=== PATIENT | female | born 1970 | race Hispanic/Latino ===

== ENCOUNTER 2018-03-29 21:18 | Emergency (ER) | payer OTHER ==
[2018-03-29 21:25] VITALS: BP 155/97; PULSE 100; RESP 20; TEMP 98.7; O2SAT 95
[2018-03-29] MEDS ORDERED: Lidocaine 5% Patch TD STA (21:41)
[2018-03-29] MEDS ORDERED: Lidocaine 5% Patch TD ONE (21:57)
--- NOTE | 2018-03-29 22:26 | C.PDOC ---
History Of Present Illness 47 year old female with a Hx of herniated discs and chronic back problems presents to the ER with a complaint of lower back pain radiating down the left leg for the past 3 days. Patient states the pain began after she bent over to pick something up. Denies weakness, numbness, or incontinence. Time Seen by Provider: 03/29/18 21:37 Chief Complaint (Nursing): Back Pain History Per: Patient History/Exam Limitations: no limitations Onset/Duration Of Symptoms: Days Current Symptoms Are (Timing): Still Present Quality Of Discomfort: Unable To Describe Previous Symptoms: Back Pain, Chronic Pain Associated Symptoms: None Exacerbating Factor(s): Nothing Recent travel outside of the [place]: No Past Medical History Reviewed: Historical Data, Nursing Documentation, Vital Signs Vital Signs: Last Vital Signs Temp 98.7 F 03/29/18 21:23 Pulse 100 H 03/29/18 21:23 Resp 20 03/29/18 21:23 BP 155/97 H 03/29/18 21:23 Pulse Ox 95 03/30/18 03:51 Family History: States: Unknown Family Hx - Social History Hx Alcohol Use: Yes Hx Substance Use: No Review Of Systems Genitourinary: Negative for: Incontinence Musculoskeletal: Positive for: Back Pain Neurological: Negative for: Weakness, Numbness Physical Exam - Physical Exam Appears: Non-toxic Skin: Normal Color, Warm, Dry Head: Atraumatic, Normacephalic Eye(s): bilateral: Normal Inspection Nose: Normal Oral Mucosa: Moist Neck: Normal ROM Chest: Symmetrical Cardiovascular: Rhythm Regular, No Murmur Respiratory: Normal Breath Sounds, No Wheezing Back: No Vertebral Tenderness, Paraspinal Tenderness Extremity: Normal ROM (x4) Neurological/Psych: Oriented x3, Normal Speech, Normal Motor, Normal Sensation Gait: Steady ED Course And Treatment O2 Sat by Pulse Oximetry: 95 (Room air ) Pulse Ox Interpretation: Normal Medical Decision Making Medical Decision Making: Valium, lidoderm, and toradol administered. On reevaluation, patient reports improvement of pain, she is able to ambulate with a steady gait, will discharge home with Rx and instructions to follow up with PMD or return if symptoms worsen. Disposition Counseled Patient/Family Regarding: Diagnosis, Need For Followup, Rx Given - Disposition Referrals: [facility] [Outside] [facility] [Outside] Disposition: HOME/ ROUTINE Disposition Time: 22:24 Condition: IMPROVED Additional Instructions: Follow up with the clinic in 2-5 days for further evaluation. Take medications as prescribed. Return to the emergency department at any time if symptoms persist or worsen. You may call [facility] for any assistance [phone]. 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 - Scribe Statement The provider has reviewed the documentation as recorded by the Scribaleida Piña All medical record entries made by the Rhondaibaleida were at my direction and personally dictated by me. I have reviewed the chart and agree that the record accurately reflects my personal performance of the history, physical exam, medical decision making, and the department course for this patient. I have also personally directed, reviewed, and agree with the discharge instructions and disposition.
== END 2018-03-30 00:52 | disposition home or self-care (01) ==
LOC: C.ER 21:18
DX: M54.40 Lumbago with sciatica, unspecified side (principal)
CPT/HCPCS: 96372; 99283; J1885

== ENCOUNTER 2018-10-10 15:42 | Emergency (ER) | payer OTHER ==
[2018-10-10 16:07] VITALS: BP 175/100; PULSE 81; RESP 18; TEMP 97; O2SAT 98
[2018-10-10] MEDS ORDERED: Naproxen 550 mg Tab PO STA (16:32)
[2018-10-10] MEDS ORDERED: Naproxen 550 mg Tab PO ONE (16:47)
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
--- NOTE | 2018-10-10 17:19 | RAD ---
Date of service: 10/10/2018 HISTORY: Shortness of breath COMPARISON: No prior. TECHNIQUE: Chest PA and lateral FINDINGS: LINES AND TUBES: None. LUNG AND PLEURA: The lungs are hyperinflated and there is peribronchial thickening with chronic changes in both lungs. No pleural effusion or pneumothorax. HEART AND MEDIASTINUM: The heart is not enlarged. No aortic atherosclerotic calcifications present. The hilar and mediastinal contours are within normal limits. SKELETAL STRUCTURES: The bony structures are within normal limits for the patient's age. VISUALIZED UPPER ABDOMEN: Normal. OTHER FINDINGS: None. IMPRESSION: No active pulmonary disease. COPD.
== END 2018-10-10 17:57 | disposition home or self-care (01) ==
LOC: C.ER 15:42
DX: S20.219A Contusion of unspecified front wall of thorax, initial encounter (principal); X58.XXXA Exposure to other specified factors, initial encounter